=== PATIENT | male | born 1960 | race Caucasian/White ===

== ENCOUNTER 2023-08-21 09:33 | Emergency (ER) | payer BC, OTHER ==
[~2023-08-21] VITALS: Ht 172.7 cm; Wt 81.2 kg
[2023-08-21 09:57] VITALS: BP_SYST 169; PULSE 95; RESP 18; TEMP 98.3; O2SAT 98
[2023-08-21 11:04] LABS: BILIRUBIN,URINE NEGATIVE (NEGATIVE); BLOOD, URINE 1+ (NEGATIVE); CLARITY/URINE CLEAR (CLEAR); COLOR,URINE YELLOW (YELLOW); GLUCOSE,URINE NEGATIVE (NEGATIVE); KETONES,URINE NEGATIVE (NEGATIVE); LEUKOCYTE ESTERASE ,URINE NEGATIVE (NEGATIVE); NITRITE, URINE NEGATIVE (NEGATIVE); PH,URINE 7.5 (5.0-8.0); PROTEIN URINE NEGATIVE (NEGATIVE); UROBILINOGEN,URINE 0.2 (0.2-1.0)
[2023-08-21 11:11] LABS: BASOPHILS # (AUTO) 0.1 K/uL (0.0-0.2); BASOPHILS % (AUTO) 0.5 % (0.0-2.0); EOSINOPHILS # (AUTO) 0.1 K/uL (0.0-0.4); EOSINOPHILS % (AUTO) 0.4 % (0.0-4.0); HEMATOCRIT 39.4 % (36-54); LYMPHOCYTES # (AUTO) 1.7 K/uL (1.0-5.5); LYMPHOCYTES % (AUTO) 12.2 % (20.5-51.5); MEAN CORPUSCULAR HEMOGLOBIN 31 pg (27-31); MEAN CORPUSCULAR HGB CONC 33 % (32-36); MEAN CORPUSCULAR VOLUME 92 fL (79.0-98.0); MONOCYTES # (AUTO) 0.6 K/uL (0.0-1.0); MONOCYTES % (AUTO) 4.5 % (1.7-9.3); NEUTROPHILS # (AUTO) 11.6 K/uL (1.8-7.7); NEUTROPHILS % (AUTO) 82.4 % (40.0-70.0); PLATELET COUNT (AUTO) 251 K/uL (130-430); RED BLOOD CELL COUNT(AUTO) 4.27 MIL/uL (4.2-6.2); RED CELL DISTRIBUTION WIDTH 14.1 % (9.0-15.0); WHITE BLOOD COUNT (AUTO) 14.1 K/uL (4.8-10.8)
[2023-08-21 11:19] LABS: CALCIUM 7.8 mg/dL (8.4-11.0); CREATININE 0.81 mg/dL (0.55-1.30); POTASSIUM 3.2 mmol/L (3.5-5.1)
[2023-08-21 11:20] LABS: BACTERIA,URINE None Seen /HPF (None Seen); WBC,URINE NONE SEEN /HPF (0-3)
[2023-08-21 11:23] LABS: ALBUMIN 2.5 g/dL (3.4-4.8); TOTAL BILIRUBIN 0.5 mg/dL (0.0-1.0); TOTAL PROTEIN, SERUM 6.7 g/dL (6.4-8.3)
[2023-08-21] MEDS ORDERED: KETOROLAC TROMETHAMINE 15 MG VIAL IVP ONE (12:45)
[2023-08-21] MEDS ORDERED: CEPH-548 PO (13:08)
[2023-08-21] MEDS ORDERED: cephALEXin 500 MG CAPSULE PO ONE (13:15)
[2023-08-21 14:11] VITALS: BP_SYST 169; PULSE 95; RESP 18; TEMP 98.3; O2SAT 98
== END 2023-08-21 13:55 | disposition home or self-care (01) ==
LOC: SED 09:33
DX: N39.0 Urinary tract infection, site not specified (principal); R33.9 Retention of urine, unspecified; R10.32 Left lower quadrant pain; Z79.899 Other long term (current) drug therapy
CPT/HCPCS: 99285; 96374; 74160; 80053; 81000; 83690; 85025; 36415; 76376; J1885; Q9967

== ENCOUNTER 2023-09-23 08:08 | Emergency (ER) | payer BC, OTHER ==
[~2023-09-23] VITALS: Ht 172.7 cm; Wt 81.6 kg
[~2023-09-23 08:08] MED LIST: CEPH-548 PO
[2023-09-23 08:16] VITALS: BP_SYST 141; PULSE 80; RESP 18; TEMP 98.3; O2SAT 97
[2023-09-23] MEDS ORDERED: MORPHINE 4 MG INJ. 4 MG/ML VIAL IM ONE (09:15)
[2023-09-23] MEDS ORDERED: ACETAMINOPHEN 500 MG TABLET PO ONE (09:15)
[2023-09-23] MEDS ORDERED: LIDOCAINE PATCH 5% 1 EA TP ONE (09:15)
[2023-09-23] MEDS ORDERED: CYCL10TA24 PO (09:33)
[2023-09-23] MEDS ORDERED: HYDR-3917 PO (09:33)
[2023-09-23] MEDS ORDERED: ACET-2634 PO (09:33)
[2023-09-23] MEDS ORDERED: LIDOINT TP (09:33)
[2023-09-23 09:46] VITALS: BP_SYST 141; PULSE 80; RESP 18; TEMP 98.3; O2SAT 97
== END 2023-09-23 09:44 | disposition home or self-care (01) ==
LOC: SED 08:08
DX: S39.012A Strain of muscle, fascia and tendon of lower back, initial encounter (principal); M62.830 Muscle spasm of back; J44.9 Chronic obstructive pulmonary disease, unspecified; Z79.899 Other long term (current) drug therapy; X58.XXXA Exposure to other specified factors, initial encounter; Y93.89 Activity, other specified; Y92.89 Other specified places as the place of occurrence of the external cause; Y99.8 Other external cause status
CPT/HCPCS: 99283; 96372; J2270